=== PATIENT | female | born 2000 | race Caucasian/White ===

== ENCOUNTER 2023-03-11 09:49 | Day surgery (SDC) | payer BC ==
[2023-03-10 11:56] VITALS: BMI 42.5
[2023-03-11] MEDS ORDERED: Famotidine/PF 20 mg/2ml Vial ONE (11:09)
[2023-03-11] MEDS ORDERED: Meperidine HCl/PF 25 MG (1 mL) VIAL ONE (11:09)
[2023-03-11] MEDS ORDERED: Lidocaine 2% PF 5 ML VIAL ONE (11:16)
[2023-03-11] MEDS ORDERED: Ondansetron PF 4 MG/2 ML Vial ONE (11:16)
[2023-03-11] MEDS ORDERED: PROPOFOL 20 ML ONE (11:16)
[2023-03-11] MEDS ORDERED: fentaNYL 50 mcg/mL 1 mL Vial ONE ×4 (11:17→13:05)
[2023-03-11] MEDS ORDERED: Bacitracin Zinc Ointment 30 gm TUBE ONE (11:18)
[2023-03-11] MEDS ORDERED: Bupivacaine PF 0.5% 30 ML VIAL ONE (11:18)
[2023-03-11] MEDS ORDERED: CEFAZOLIN 2 GM VIAL ONE (11:25)
[2023-03-11 11:26] LABS: #Basophils 0.1 thou/uL (0.0-0.2); #Eosinphils 0.1 thou/uL (0.0-0.7); #Monocytes 0.6 thou/uL (0.11-0.59); #Neutrophils 5.7 thou/uL (1.40-6.50); %Basophils 0.6 % (0.0-1.0); %Eosinophils 0.7 % (0.0-10.0); %Neutrophils 58.5 % (42.0-75.0); Hematocrit 42.4 % (36.0-47.0); Hemoglobin 14.4 g/dL (12.0-16.0); Mean Corpuscular Hemoglobin 30.5 pg (27.0-31.0); Mean Corpuscular Volume 89.8 fl (78.0-98.0); Mean Platelet Volume 11.9 fL (7.4-10.4); Platelet Count 342 10x3/uL (130-400); RBC Distribution Width 12.7 % (11.5-14.5); Red Blood Cell (RBC) Count 4.72 mill/uL (4.20-5.40); White Blood Cell (WBC) Count 9.7 10x3/uL (4.8-10.8)
[2023-03-11] MEDS ORDERED: Sodium Chloride 0.9% 100 ML ONE (11:26)
[2023-03-11] MEDS ORDERED: Midazolam HCl 2 mg/2 ml Vial ONE (11:40)
[2023-03-11] MEDS ORDERED: Metoclopramide HCl 10 MG (2 mL) VIAL ONE (11:56)
[2023-03-11] MEDS ORDERED: Dexamethasone 4 mg/ml Vial ONE (11:56)
[2023-03-11] MEDS ORDERED: Ketorolac Tromethamine 30 MG (1 mL) VIAL ONE ×2 (11:56→13:06)
[2023-03-11] MEDS ORDERED: Dexmedetomidine 200 MCG/2 ML VIAL ONE (12:23)
== END 2023-03-11 14:33 | disposition home or self-care (01) ==
LOC: EDSEX → SDC 09:49
PROVIDERS: ATTEND Orthopaedic Surgery Hand Surgery
PROC: 0PSP34Z Reposition Right Metacarpal with Internal Fixation Device, Percutaneous Approach (ICD-10-PCS; principal; 2023-03-11)
DX: S62.356G Nondisplaced fracture of shaft of fifth metacarpal bone, right hand, subsequent encounter for fracture with delayed healing (principal); S62.35 Nondisplaced fracture of shaft of other metacarpal bone; X58.XXXD Exposure to other specified factors, subsequent encounter
CPT/HCPCS: 85025; C1894; J1100; J1885; J2001; J2175; J2250; J2405; J2704; J2765; J3010; J3490; S0020; S0028